=== PATIENT | female | born 1985 | race Caucasian/White ===

== ENCOUNTER → 2017-09-23 14:51 | Outpatient (CLI) | payer SELFPAY ==
--- NOTE | 2017-09-23 13:30 | EMB_PTH ---
PATIENT: LIZETH SANTACRUZ LOC: [facility] U#:[id number] AGE/SX: 39/F ROOM: RE09/23/[address]: Dr. Anabel See MD : [id number] BED: DIS: SPEC #: [id number] RECD: 09/23/17 14:54 STATUS: KATHRYN BALJEET #: [id number] JELENA: 09/23/17 13:[address]: Anabel Michelle DEPT: SURGICAL PATHOLOGY RECD BY: Anthony Rouse Tissues: Endometrium, NOS Procedures: Surgery Specimen Level IV HEADER OPERATION: Endometrial biopsy PRE-OP DIAGNOSIS: Uterine fibroid TISSUE SUBMITTED: Endometrial biopsy MICROSCOPIC DIAGNOSIS Endometrium, biopsy: Secretory endometrium with glandular and stromal breakdown. AM:jeff 09/24/17 MICROSCOPIC DESCRIPTION Slides are reviewed. GROSS DESCRIPTION Received in fixative is one container labeled with the patient's name and designated endometrial biopsy. The specimen consists of multiple irregular and elongated fragments of pink-bob soft tissue that in aggregate measure 2 x 2 x 0.2 cm. The specimen is totally submitted in one cassette. / AM:jeff 09/23/17 TC:5 CPT: 46653
[2017-09-23 16:06] LABS: LDH 207 U/L (84-246)
== END ==
PROVIDERS: Visit Provider Obstetrics & Gynecology
DX: D25.9 Leiomyoma of uterus, unspecified (principal)
CPT/HCPCS: 83615; 88305

== ENCOUNTER → 2017-10-07 16:46 | Outpatient (CLI) | payer SELFPAY ==
--- NOTE | 2017-10-07 17:30 | MRI_ITS ---
STUDY: MR PELVIS WITH T WITHOUT CONTRAST REASON FOR EXAM: Female, 31 years old. Intramural leiomyoma of uterus Pelvic pain TECHNIQUE: Standardized fat and water weighted pulse sequences were obtained in all 3 orthogonal planes, pre-and post contrast administration. 6 ml of Gadavist contrast material was administered intravenously for the contrast portion of the examination. COMPARISON: None. FINDINGS: Normal urinary bladder. Normal visualized small intestine. Normal visualized colon. There are physiologic follicles of both ovaries. The uterus is diffusely enlarged. There are multiple lobulated low T2 signal masses in the uterus. The largest is in the left uterine body measuring 72 x 61 mm. There is an isointense T2 lesion in the uterine fundus. This contains multiple internal foci of T2 intensity. This lesion measures 73 mm. There is diffuse heterogeneous enhancement of the uterus. There is no pelvic fluid. There is no pelvic mass lesion or lymphadenopathy. Normal visualized pelvic arteries. Normal osseous structures. Normal abdominal wall. MRI/Pelvis W/WO Contrast IMPRESSION: Enlarged fibroid uterus. Electronically Signed: Jah Madrid MD at 20:16 EDT , Service support ,
== END ==
PROVIDERS: Visit Provider Obstetrics & Gynecology
DX: D25.1 Intramural leiomyoma of uterus (principal)
CPT/HCPCS: 72197; A9585